=== PATIENT | female | born 1970 | race Caucasian/White ===

== ENCOUNTER 2019-10-14 16:49 | Emergency (ER) | payer BC, SELFPAY ==
[2019-10-14 17:01] VITALS: BP 147/96; PULSE 85; RESP 18; TEMP 37.1; O2SAT 98; BMI 29.9
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
[2019-10-14 19:27] VITALS: BP 155/74; PULSE 91; RESP 18; O2SAT 97
== END 2019-10-14 19:28 | disposition home or self-care (01) ==
PROVIDERS: Emergency Provider Physician Assistant; PCP Nurse Practitioner Family
DX: S13.4XXA Sprain of ligaments of cervical spine, initial encounter (principal); S80.01XA Contusion of right knee, initial encounter; S63.92XA Sprain of unspecified part of left wrist and hand, initial encounter; V53.5XXA Driver of pick-up truck or van injured in collision with car, pick-up truck or van in traffic accident, initial encounter
CPT/HCPCS: 12345; 70450; 72125; 72128; 72131; 73130; 73562; 99281; 99283

== ENCOUNTER 2021-03-07 14:58 | Outpatient (CLI) | payer OTHER, SELFPAY ==
--- NOTE | 2021-03-07 15:04 | MM_ITS ---
WS: [id number] BILATERAL DIGITAL SCREENING MAMMOGRAPHY WITH CAD CLINICAL INFORMATION: SCREENING HISTORY: Screening mammogram. Left breast tenderness. COMPARISON: TECHNIQUE: Bilateral CC and MLO views. FINDINGS: Scattered fibroglandular densities bilaterally. A few incidental benign calcifications. No suspicious focal mass, asymmetry, calcifications, or architectural distortion. No evidence of malignancy. MM/[place] [id number] IMPRESSION: BI-RADS: 2-Benign FOLLOW UP: 1 Year Follow-up Recommend return to annual screening mammography.
== END 2021-03-07 14:59 | disposition home or self-care (01) ==
LOC: RADSHAW 14:59
PROVIDERS: PCP Nurse Practitioner Family; Visit Provider Nurse Practitioner Family
DX: Z12.31 Encounter for screening mammogram for malignant neoplasm of breast (principal)
CPT/HCPCS: 77067

== ENCOUNTER → 2022-01-24 09:04 | Outpatient (BNVA) | payer OTHER, SELFPAY | PROVIDERS: PCP Nurse Practitioner Family; Visit Provider Nurse Practitioner Women's Health | DX: N76.0 Acute vaginitis (principal); B96.89 Other specified bacterial agents as the cause of diseases classified elsewhere; Z12.4 Encounter for screening for malignant neoplasm of cervix; Z11.3 Encounter for screening for infections with a predominantly sexual mode of transmission | CPT/HCPCS: 87491; 87591; 87624; 87661 ==

== ENCOUNTER → 2022-03-01 08:15 | Outpatient (BNVA) | payer OTHER, SELFPAY | PROVIDERS: PCP Nurse Practitioner Family; Visit Provider Nurse Practitioner Women's Health | DX: N89.8 Other specified noninflammatory disorders of vagina (principal) | CPT/HCPCS: 87070; 87205 ==

== ENCOUNTER 2022-12-19 11:17 | Outpatient (CLI) | payer OTHER, SELFPAY ==
[2022-12-19 12:11] LABS: Basophils # 0.1 10^3/uL (0.0-0.1); Eosinophils # 0.1 10^3/uL (0.0-0.8); Eosinophils % 2.3 %; Hematocrit 24.8 % (37.0-47.0); Lymphocytes % 44.6 %; Mean Corpuscular HGB Conc 25.4 g/dL (30.0-36.0); Mean Corpuscular Hemoglobin 15.9 pg (28.0-34.0); Mean Corpuscular Volume 62.8 fl (81-99); Mean Platelet Volume 9.3 fL (7.4-10.4); Monocytes # 0.5 10^3/uL (0.2-0.9); Monocytes % 10.9 %; Neutrophils # 1.77 10^3/uL (1.8-7.7); Nucleated Red Blood Cells % 0 %; Platelet Count 370 10^3/cmm (130-400); Red Blood Count 3.95 10^6/uL (4.1-5.3); Red Cell Distribution Width 20.1 % (12.1-15.1); White Blood Count 4.4 10^3/uL (4.0-10.0)
[2022-12-19 12:43] LABS: Hemoglobin 6.3 g/dL (11.5-15.3)
[2022-12-19 13:09] LABS: Ferritin 8 ng/mL (15-150); Iron 14 ug/dL (37-145); Total Iron Binding Capacity 460 mcg/dl; Unsaturated Iron Binding 446 ug/dL (112-347)
[2022-12-19 13:25] LABS: 25 Hydroxy Vitamin D 30 ng/mL (30-100); Vitamin B12 249 pg/mL (232-1245)
[2022-12-19 14:29] LABS: Folate Level > 20.0 ng/mL (4.8-37.3)
== END 2022-12-19 11:18 | disposition home or self-care (01) ==
PROVIDERS: PCP Nurse Practitioner Family; Visit Provider Nurse Practitioner Family
DX: E61.1 Iron deficiency (principal); D64.9 Anemia, unspecified
CPT/HCPCS: 36415; 82306; 82607; 82728; 82746; 83540; 83550; 85025

== ENCOUNTER 2022-12-20 07:25 | Oncology outpatient (recurring) (ONCR) | payer OTHER, SELFPAY ==
[2022-12-20] VITALS (11 sets, daily range): BP systolic 113–128; BP diastolic 56–73; PULSE 82–87; RESP 18; TEMP 36.6–37.4; O2SAT 97–100; BMI 29.9
[2022-12-20] MEDS: sodium chloride 0.9% 250 mL Bag IV (09:38)
[2022-12-20] MEDS: acetaminophen 325 mg Tablet 1000 MG PO (09:39)
[2022-12-20] MEDS: diphenhydrAMINE 25 mg Capsule PO (09:39)
== END 2023-01-03 23:59 | disposition home or self-care (01) ==
LOC: ONCMED 07:26
PROVIDERS: PCP Nurse Practitioner Family; Visit Provider Nurse Practitioner Family
DX: D64.9 Anemia, unspecified (principal)
CPT/HCPCS: 36415; 36430; 86850; 86900; 86920; J7050; P9040

== ENCOUNTER 2023-01-01 07:37 | Outpatient (CLI) | payer OTHER, SELFPAY | END 2023-01-01 07:38 | disposition home or self-care (01) | PROVIDERS: PCP Nurse Practitioner Family; Visit Provider Surgery | DX: K92.1 Melena (principal) | CPT/HCPCS: 82274 ==

== ENCOUNTER 2023-01-25 05:52 | Day surgery (SDC) | payer OTHER, SELFPAY ==
[2023-01-23 12:58] VITALS: BMI 28.8
[2023-01-25 06:13] VITALS: BP 133/91; PULSE 77; RESP 18; TEMP 36.5; O2SAT 99
[2023-01-25] MEDS: sodium chloride 0.9% 1,000 ML 30 ML IV (06:15)
--- NOTE | 2023-01-25 06:28 | W.PM.OPSFHP ---
Same Day Surgery H&P Indication for Procedure/HPI DATE OF PROCEDURE: January 25, 2023 CHIEF COMPLAINT/INDICATIONFOR SURGICAL PROCEDURE: anemia PREOP DIAGNOSIS: anemia PLANNED PROCEDURE: Operation Date: 01/25/23 07:00 Proposed Procedures p 78502 EGD 62306 Colonoscopy K92.2(Not Applicable) - Nain Finley MD s Colonoscopy(Not Applicable) - Nain Finley MD Medications/Allergies* Home Medications Medication Instructions Recorded Confirmed Type ferrous sulfate 325 mg (65 mg 325 mg PO BID 01/23/23 01/23/23 History iron) tablet (Iron (ferrous sulfate)) levothyroxine 25 mcg tablet 25 mcg PO DAILY 01/23/23 01/23/23 History omeprazole 20 mg capsule,delayed 20 mg PO DAILY 01/23/23 01/23/23 History release Allergies/Adverse Reactions Allergy/AdvReac Type Severity Reaction Status Date / Time No Known Allergies Allergy Verified 12/31/22 08:49 Current Medications: Generic Name Dose Route Start Last Admin Trade Name Freq PRN Reason Stop Dose Admin Sodium Chloride 1,000 mls @ 30 mls/hr 01/25/23 06:15 01/25/23 06:15 Sodium Chloride 0.9% IV 01/26/23 06:14 30 mls/hr .Q24H NATASHA Administration Pertinent History/Comorbid Conditions* Medical History (Updated 12/31/22 @ 09:24 by Nain Finley MD) No pertinent past medical history neghx: htn,dm,thyroid,dvt/pe PCP: None Surgical History (Updated 01/24/22 @ 08:43 by HARDEEP JimenesN, WHNP) Hx laparoscopic cholecystectomy Hx of breast biopsy R breast-- benign Removal of tissue due to biopsy Hx of tubal ligation (~2003) Family History (Updated 01/24/22 @ 07:44 by Iris Haywood) Denies family history of Colon cancer Ovarian cancer Diabetes Heart disease Hypercholesteremia Breast cancer Hypertension Uterine cancer Thyroid disease Stroke Pertinent Exam Findings alert, oriented x 3, clear to auscultation bilaterally and regular rate & rhythm Recommendations Surgery/Procedure today Coding Level of Care Code Acute Code for Chg Fwd Diagnoses
--- NOTE | 2023-01-25 06:56 | ANES.PREANE2 ---
Pre-Anesthetic Assessment Height/Weight: Height 1.73 m Weight 86.183 kg Temp Pulse Resp BP Pulse Ox O2 Del Method 97.7 F 77 18 133/91 99 Room Air 01/25/23 06:13 01/25/23 06:13 01/25/23 06:13 01/25/23 06:13 01/25/23 06:13 01/25/23 06:13 Preop Diagnosis: anemia Operation Date: 01/25/23 07:00 Proposed Procedures p 02893 EGD 88439 Colonoscopy K92.2(Not Applicable) - Nain Finley MD s Colonoscopy(Not Applicable) - Nain Finley MD Was Beta Duke taken within 24 hours: N/A Was Clonidine taken within 24 hours: N/A Last intake: Intake Last Liquid Date 01/24/23 Last Liquid Time 21:00 Last Solid Date 01/23/23 Last Solid Time 18:00 Social No alcohol and No tobacco Exam alert, oriented x 3, clear to auscultation bilaterally and regular rate & rhythm Airway Submandibular: within normal limits Cervical ROM: within normal limits Mallampati: Class I History/ROS No significant history except as noted and No significant complaints Pulmonary None reported CV/HEM None reported None reported Hepatic None reported GI Gastroesophageal Reflux Disease controlled Metabolic Thyroid Disease hypo, new diagnosis Musc/skel None reported Neuropsych None reported Anesthetic Plan ASA status: 2 Anesthesia: Anesthesia Evaluation and MAC Risk of > 500 ml blood loss (7ml/kg in children): Yes, adequate IV access and fluids planned Medications/Allergies Home Medications Medication Instructions Recorded Confirmed Last Taken Type ferrous sulfate 325 mg (65 mg 325 mg PO BID 01/23/23 01/23/23 01/23/23 History iron) tablet (Iron (ferrous sulfate)) levothyroxine 25 mcg tablet 25 mcg PO DAILY 01/23/23 01/23/23 01/24/23 History omeprazole 20 mg capsule,delayed 20 mg PO DAILY 01/23/23 01/23/23 01/23/23 History release Allergies Allergy/AdvReac Type Severity Reaction Status Date / Time No Known Allergies Allergy Verified 12/31/22 08:49 Current Medications Generic Name Dose Route Start Last Admin Trade Name Freq PRN Reason Stop Dose Admin Sodium Chloride 1,000 mls @ 30 mls/hr 01/25/23 06:15 01/25/23 06:15 Sodium Chloride 0.9% IV 01/26/23 06:14 30 mls/hr .Q24H NATASHA Administration PFSH Anesthesia Medical History No pertinent past medical history neghx: htn,dm,thyroid,dvt/pe PCP: None Surgical History Hx laparoscopic cholecystectomy Hx of breast biopsy R breast-- benign Removal of tissue due to biopsy Hx of tubal ligation (~2003) Family History Denies family history of Colon cancer Ovarian cancer Diabetes Heart disease Hypercholesteremia Breast cancer Hypertension Uterine cancer Thyroid disease Stroke Data Anesthesia Cardiac Studies: No Data to Display
[2023-01-25 08:02] VITALS: BP 114/63; PULSE 87; RESP 16; TEMP 36.2; O2SAT 92
[2023-01-25 08:16] VITALS: BP 110/65; PULSE 78; RESP 16; O2SAT 96
== END 2023-01-25 08:38 | disposition home or self-care (01) ==
PROVIDERS: PCP Nurse Practitioner Family; Visit Provider Surgery
PROC: 0DJ08ZZ Inspection of Upper Intestinal Tract, Via Natural or Artificial Opening Endoscopic (ICD-10-PCS; CPT 43235; principal; 2023-01-25 07:00)
PROC: 0DJD8ZZ Inspection of Lower Intestinal Tract, Via Natural or Artificial Opening Endoscopic (ICD-10-PCS; CPT 45378; 2023-01-25 07:00)
DX: K63.5 Polyp of colon (principal); K29.50 Unspecified chronic gastritis without bleeding; K21.00 Gastro-esophageal reflux disease with esophagitis, without bleeding
CPT/HCPCS: 43239; 45385; 88305; 88342; J2704; J7030

== ENCOUNTER 2023-09-26 11:27 | Outpatient (CLI) | payer OTHER, SELFPAY ==
--- NOTE | 2023-09-26 11:30 | MM_ITS ---
WS: [id number] BILATERAL SCREENING DIGITAL TOMOSYNTHESIS MAMMOGRAM WITH CAD HISTORY: SCREENING COMPARISON: 03/07/2021, 02/08/2016, 07/19/2014 Bilateral CC and MLO views with tomosynthesis and synthetic mammography submitted. Computer aided det ection analyzed. Breast composition: There are scattered areas of fibroglandular density. No suspicious masses, microc alcifications or architectural distortion. Scattered asymmetries are stable over multiple prior years . MM/[place] [id number] IMPRESSION: BI-RADS: 2-Benign FOLLOW UP: 1 Year Follow-up
== END 2023-09-26 11:28 | disposition home or self-care (01) ==
LOC: MOBLMAM 11:33
PROVIDERS: PCP Nurse Practitioner Family; Visit Provider Nurse Practitioner Family
DX: Z12.31 Encounter for screening mammogram for malignant neoplasm of breast (principal); R92.323 Mammographic fibroglandular density, bilateral breasts; N64.89 Other specified disorders of breast
CPT/HCPCS: 77063; 77067

== ENCOUNTER 2024-10-22 09:15 | Outpatient (CLI) | payer BC, SELFPAY ==
--- NOTE | 2024-10-22 09:20 | MM_ITS ---
WS: [id number] BILATERAL SCREENING DIGITAL TOMOSYNTHESIS MAMMOGRAM WITH CAD HISTORY: SCREENING COMPARISON: 09/26/2023, 03/07/2021 and 02/08/2016. Bilateral CC and MLO views with tomosynthesis and synthetic mammography submitted. Computer aided detection analyzed. Breast composition: There are scattered areas of fibroglandular density. No suspicious masses, microcalcifications or architectural distortion. Irregular asymmetry in the central LEFT breast just medial to the nipple line was also present in 2016. No suspicious masses or grouping of calcifications. MM/MM [facility] tomosynthesis [id number] IMPRESSION: BI-RADS: 2 - Benign. FOLLOW UP: 1 Year Follow-up
== END 2024-10-22 09:16 | disposition home or self-care (01) ==
LOC: MOBLMAM 09:17
PROVIDERS: PCP Nurse Practitioner Family; Visit Provider Nurse Practitioner Family
DX: Z12.31 Encounter for screening mammogram for malignant neoplasm of breast (principal)
CPT/HCPCS: 77063; 77067